=== PATIENT | female | born 1990 | race African-American/Black ===

== ENCOUNTER 2016-08-08 22:43 | Emergency (ER) | payer SELFPAY ==
[~2016-08-08] VITALS: Ht 162.6 cm; Wt 54.5 kg
[2016-08-08] MEDS ORDERED: PERTUSS(ACELL),DIPH,TET VAC/PF 0.5 ML VIAL IM ONE (23:45)
[2016-08-08] MEDS ORDERED: BACITRACIN 0.9 GM PACKET OINTMENT TP ONE (23:45)
[2016-08-09 00:06] VITALS: BP 117/83
== END 2016-08-09 00:08 | disposition home or self-care (01) ==
LOC: EMS 22:49
DX: S31.815A Open bite of right buttock, initial encounter (principal); W54.0XXA Bitten by dog, initial encounter; Y93.89 Activity, other specified; Y92.89 Other specified places as the place of occurrence of the external cause; Y99.8 Other external cause status
CPT/HCPCS: 90471; 90715; 99283